=== PATIENT | female | born 1935 | race Caucasian/White ===

== ENCOUNTER 2017-12-06 17:47 | Emergency (ER) | payer MEDICARE, OTHER ==
--- NOTE | 2017-12-06 20:06 | ER ---
Nurse's Notes [facility] Name: iVn Hassan Age: 82 yrs Sex: Female : 1935 Arrival Date: 12/06/2017 Time: 17:51 Bed 2 Private MD: Martín Pruitt V Diagnosis: Unspecified open wound, right lower leg Presentation: 12/06 18:04 Presenting complaint: Patient states: Laceration to posterior right leg 1 hour [employer]. aj Patient reports she was cut by a plastic rope when her dog tangled it around her. Denies falling. Transition of care: patient was not received from another setting of care. Complicating Factors: There are no complicating factors for this patient. Onset of symptoms was December 06, 2017. Risk Assessment: Do you want to hurt yourself or someone else? Patient reports no desire to harm self or others. Initial Sepsis Screen: Does the patient meet any 2 criteria? No. Patient's initial sepsis screen is negative. Does the patient have a suspected source of infection? No. Patient's initial sepsis screen is negative. Care prior to arrival: None. 18:04 Method Of Arrival: Ambulatory 18:04 Acuity: DAVID 4 aj Triage Assessment: 18:06 General: Appears in no apparent distress. comfortable, Behavior is calm, cooperative, aj appropriate for age. Pain: Complains of pain in right Achilles. Neuro: Level of Consciousness is awake, alert, obeys commands, Oriented to person, place, time, situation, Appropriate for age. Respiratory: Airway is patent Respiratory effort is even, unlabored, Respiratory pattern is regular, symmetrical. Derm: Skin is intact, is healthy with good turgor, Skin is pink, warm \T\ dry. normal. Injury Description: Laceration sustained to right Achilles. Historical: - Allergies: 18:06 Clindamycin; aj - Immunization history:: Immunization history: Last tetanus immunization: < 10 years ago. - Social history:: Smoking status: Patient/guardian denies using tobacco. - Ebola Screening: : Patient negative for fever greater than or equal to 101.5 degrees Fahrenheit, and additional compatible Ebola Virus Disease symptoms Patient denies exposure to infectious person Patient denies travel to an Ebola-affected area in the 21 days before illness onset No symptoms or risks identified at this time. Screenin:35 Abuse screen: Denies threats or abuse. Nutritional screening: No deficits noted. aa5 Tuberculosis screening: No symptoms or risk factors identified. Fall Risk None identified. Assessment: 18:35 General: Appears comfortable, Behavior is calm, cooperative. Pain: Denies pain. Neuro: aa5 Level of Consciousness is awake, alert, obeys commands, Oriented to person, place, time, situation. Cardiovascular: Patient's skin is warm and dry. Respiratory: Airway is patent Respiratory effort is even, unlabored, Respiratory pattern is regular, symmetrical. GI: No signs and/or symptoms were reported involving the gastrointestinal system. : No signs and/or symptoms were reported regarding the genitourinary system. EENT: No signs and/or symptoms were reported regarding the EENT system. Derm: Skin is pink, warm \T\ dry. Bruising that is dark purple, on right calf Skin tear noted to right calf, no active bleeding noted at this time, dressing noted. . Musculoskeletal: Range of motion: intact in all extremities. 19:20 Reassessment: Patient appears in no apparent distress at this time. No changes from jd3 previously documented assessment. Patient and/or family updated on plan of care and expected duration. Pain level reassessed. Patient is alert, oriented x 3, equal unlabored respirations, skin warm/dry/pink. Injury Description: Abrasion sustained to right calf. 19:47 Reassessment: Patient appears in no apparent distress at this time. wound cleaned, ak1 dressed with steri-strips, non adherent dressing and kerlex. 20:15 Injury Description: Laceration is clean. ak1 Vital Signs: 18:06 BP 184 / 69; Pulse 100; Resp 19; Temp 97.7; Pulse Ox 97% on R/A; Weight 55.34 kg; aj Height 5 ft. 2 in. (157.48 cm); 18:06 Body Mass Index 22.31 (55.34 kg, 157.48 cm) aj ED Course: 17:51 Patient arrived in ED. mr 17:52 Martín Pruitt MD is Private Physician. mr 18:05 Triage completed. aj 18:06 Arm band placed on right wrist. Patient placed in an exam room. aj 18:35 Patient has correct armband on for positive identification. aa5 18:55 Irma Nguyễn, [place] is Primary Nurse. aa5 19:10 Chris Nuñez PA is PHCP. [facility] 19:10 Kvng Quijano MD is Attending Physician. [facility] 19:10 Report given to AMERICA Hare and AMERICA Moralez. aa5 19:47 No provider procedures requiring assistance completed. ak1 20:03 Martín Pruitt MD is Referral Physician. [facility] 20:16 Patient did not have IV access during this emergency room visit. ak1 Administered Medications: No medications were administered Outcome: 20:05 Discharge ordered by MD. [facility] 20:15 Discharged to home ambulatory. ak1 20:15 Condition: good 20:15 Discharge instructions given to patient, Instructed on discharge instructions, follow up and referral plans. no drinking with medication, no driving heavy equipment, medication usage, wound care, Demonstrated understanding of instructions, follow-up care, medications, wound care, Prescriptions given X 1. 20:16 Patient left the ED. ak1 Signatures: Maryanne Mcgee RN RN aj Mickail, Joel, PA PA [facility] DoshiTracie mr MarinoIrma fraser, RN AMERICA [email or web address] Naomy Altamirano RN RN ak1 Payam Ramsay RN RN jd3 Corrections: (The following items were deleted from the chart) 22:01 19:20 Injury Description: Abrasion sustained to left calf is skin tear noted with small jd3 amount of bleeding. jd3
--- NOTE | 2017-12-06 20:06 | EDPHYS ---
Physician Documentation [facility] Name: Vin Hassan Age: 82 yrs Sex: Female : 1935 Arrival Date: 12/06/2017 Time: 17:51 Bed 2 Private MD: Martín Pruitt V ED Physician Kvng Quijano HPI: 12/06 19:16 This 82 yrs old Female presents to ER via Ambulatory with complaints of jmm Laceration To Leg. 19:16 The patient has a laceration related to:. Onset: The symptoms/episode began/occurred jmm acutely, just prior to arrival. Associated signs and symptoms: Pertinent negatives: heavy bleeding. This is an 82 year female that presents to the ED with a laceration to the right lower leg. Patient states her leg was wrapped in a rope which a dog was pulling. Patient denies other injury. Patient states she is UTD on immunization. . Historical: - Allergies: 18:06 Clindamycin; aj - Immunization history:: Immunization history: Last tetanus immunization: < 10 years ago. - Social history:: Smoking status: Patient/guardian denies using tobacco. - Ebola Screening: : Patient negative for fever greater than or equal to 101.5 degrees Fahrenheit, and additional compatible Ebola Virus Disease symptoms Patient denies exposure to infectious person Patient denies travel to an Ebola-affected area in the 21 days before illness onset No symptoms or risks identified at this time. ROS: 19:16 Constitutional: Negative for fever, chills, and weight loss, Cardiovascular: Negative jmm for chest pain, palpitations, and edema, Respiratory: Negative for shortness of breath, cough, wheezing, and pleuritic chest pain. 19:16 Skin: Positive for laceration(s). Exam: 19:16 Constitutional: This is a well developed, well nourished patient who is awake, alert, jmm and in no acute distress. Head/Face: atraumatic. Eyes: EOMI, no conjunctival erythema appreciated ENT: Moist Mucus Membranes Neck: Trachea midline, Supple Chest/axilla: Normal chest wall appearance and motion. Cardiovascular: Regular rate and rhythm. No edema appreciated Respiratory: Normal respirations, no respiratory distress appreciated MS/ Extremity: Moves all extremities, no obvious deformities appreciated, no edema noted to the lower extremities 19:16 Skin: a stellate skin tear is noted to the right posterior lower leg. No bleeding is m appreciated, no FB is appreciated. 19:16 Neuro: Orientation: is normal, Mentation: is normal, Memory: is normal. 19:16 Psych: Behavior/mood is pleasant, cooperative. Vital Signs: 18:06 BP 184 / 69; Pulse 100; Resp 19; Temp 97.7; Pulse Ox 97% on R/A; Weight 55.34 kg; aj Height 5 ft. 2 in. (157.48 cm); 18:06 Body Mass Index 22.31 (55.34 kg, 157.48 cm) aj MDM: 19:16 Patient medically screened. [facility] 20:03 Data reviewed: vital signs, nurses notes. Counseling: I had a detailed discussion with [facility] the patient and/or guardian regarding: the historical points, exam findings, and any diagnostic results supporting the discharge/admit diagnosis, the need for outpatient follow up, to return to the emergency department if symptoms worsen or persist or if there are any questions or concerns that arise at home. 20:08 ED course: Patient is advised to follow up with PCP for reevaluation. Given wound [facility] infection return precautions. . 12/06 19:17 Order name: Wound Care; Complete Time: 19:49 [facility] Administered Medications: No medications were administered Disposition: 12/07 13:20 Co-signature as Attending Physician, Kvng Quijano MD I agree with the assessment and kdr plan of care. Disposition: 12/06/17 20:05 Discharged to Home. Impression: Unspecified open wound, right lower leg. - Condition is Stable. - Discharge Instructions: Skin Tear Care. - Prescriptions for Cephalexin 500 mg Oral Capsule - take 1 capsule by ORAL route every 6 hours for 10 days; 40 capsule. - Medication Reconciliation Form, Thank You Letter, Antibiotic Education, Prescription Opioid Use form. - Follow up: Martín Pruitt MD; When: 5 - 6 days; Reason: Recheck today's complaints, Continuance of care, Re-evaluation by your physician. Signatures: Maryanne Mcgee RN RN Kvng Morris MD MD kdr Mickail, Joel, PA PA jmm Krenek, Amber, RN RN ak1 Corrections: (The following items were deleted from the chart) 12/06 20:16 20:05 12/06/2017 20:05 Discharged to Home. Impression: Unspecified open wound, right ak1 lower leg. Condition is Stable. Forms are Medication Reconciliation Form, Thank You Letter, Antibiotic Education, Prescription Opioid Use. Follow up: Martín Pruitt; When: 5 - 6 days; Reason: Recheck today's complaints, Continuance of care, Re-evaluation by your physician. abraham
== END 2017-12-06 20:16 | disposition home or self-care (01) ==
LOC: ER 17:47
DX: S81.811A Laceration without foreign body, right lower leg, initial encounter (principal); W45.8XXA Other foreign body or object entering through skin, initial encounter; Y93.89 Activity, other specified; Y92.9 Unspecified place or not applicable; Z88.3 Allergy status to other anti-infective agents
CPT/HCPCS: 99282